=== PATIENT | female | born 2000 | race Caucasian/White ===

== ENCOUNTER → 2018-03-21 | Outpatient (CLI) | payer OTHER ==
[~2018-03-21] MED LIST: HYDRELX3 PO; [UNRECOGNIZED DRUG - OTHER] OTB
== END | disposition home or self-care (01) ==
LOC: C.LABPBG 11:33
PROVIDERS: ATTEND Internal Medicine
DX: Z13.220 Encounter for screening for lipoid disorders (principal); Z13.1 Encounter for screening for diabetes mellitus; R63.8 Other symptoms and signs concerning food and fluid intake